=== PATIENT | male | born 1985 | race American Indian/Alaskan Native ===

== ENCOUNTER 2019-10-10 17:37 | Emergency (ER) | payer SELFPAY ==
[2019-10-10 19:50] VITALS: BP 140/103
--- NOTE | 2019-10-10 19:55 | Emergency Department Report ---
ED ENT HPI - General Chief complaint: Dental/Oral Stated complaint: LFT SIDE TOOTHACHE Time Seen by Provider: 10/10/19 19:40 Source: patient Mode of arrival: Ambulatory Limitations: No Limitations - History of Present Illness Initial comments: pt is 33 y/o male with c/o tooth pain. pt started yesterday. pain at 10/10. worse with movement and eating. better with rest. MD complaint: tooth pain -: Sudden, days(s) Location: tooth # Severity: severe Severity scale (0 -10): 10 Quality: stabbing Consistency: constant Improves with: rest Worsens with: eating, movement Context- Dental: history of dental caries Associated Symptoms: gum swelling, toothache. denies: fever, cough, pain with swallowing, sore throat, tinnitus, hearing loss, discharge from ear, rhinorrhea - Related Data Previous Rx's Medication Instructions Recorded Last Taken Type Acetaminophen/Codeine [Tylenol 1 tab PO Q4H PRN #10 tab 10/10/19 Unknown Rx /Codeine # 3 tab] Amoxicillin/Potassium Clav 1 each PO BID 10 Days #20 tablet 10/10/19 Unknown Rx [Augmentin 875-125 Tablet] Allergies Allergy/AdvReac Type Severity Reaction Status Date / Time No Known Allergies Allergy Unverified 10/10/19 17:38 ED Dental HPI - General Chief complaint: Dental/Oral Stated complaint: LFT SIDE TOOTHACHE Time Seen by Provider: 10/10/19 19:50 Source: patient Mode of arrival: Ambulatory Limitations: No Limitations - Related Data Previous Rx's Medication Instructions Recorded Last Taken Type Acetaminophen/Codeine [Tylenol 1 tab PO Q4H PRN #10 tab 10/10/19 Unknown Rx /Codeine # 3 tab] Amoxicillin/Potassium Clav 1 each PO BID 10 Days #20 tablet 10/10/19 Unknown Rx [Augmentin 875-125 Tablet] Allergies Allergy/AdvReac Type Severity Reaction Status Date / Time No Known Allergies Allergy Unverified 10/10/19 17:38 ED Review of Systems ROS: Stated complaint: LFT SIDE TOOTHACHE Other details as noted in HPI Constitutional: denies: chills, fever Eyes: denies: eye pain, eye discharge, vision change ENT: denies: ear pain, throat pain Respiratory: denies: cough, shortness of breath, wheezing Cardiovascular: denies: chest pain, palpitations Endocrine: no symptoms reported Gastrointestinal: denies: abdominal pain, nausea, diarrhea Genitourinary: denies: urgency, dysuria Musculoskeletal: denies: back pain, joint swelling, arthralgia Skin: denies: rash, lesions Neurological: denies: headache, weakness, paresthesias Psychiatric: denies: anxiety, depression Hematological/Lymphatic: denies: easy bleeding, easy bruising ED Past Medical Hx - Past Medical History Previous Medical History?: No - Surgical History Past Surgical History?: No - Family History Family history: no significant - Social History Smoking Status: Never Smoker Substance Use Type: None - Medications Home Medications: Home Medications Medication Instructions Recorded Confirmed Last Taken Type Acetaminophen/Codeine [Tylenol 1 tab PO Q4H PRN #10 tab 10/10/19 Unknown Rx /Codeine # 3 tab] Amoxicillin/Potassium Clav 1 each PO BID 10 Days #20 tablet 10/10/19 Unknown Rx [Augmentin 875-125 Tablet] ED Physical Exam - General Limitations: No Limitations General appearance: alert, in no apparent distress - Head Head exam: Present: atraumatic, normocephalic - Eye Eye exam: Present: normal appearance - ENT ENT exam: Present: mucous membranes moist, other (no oral abscess. pos gingival swelling and redness. ) - Neck Neck exam: Present: normal inspection - Respiratory Respiratory exam: Present: normal lung sounds bilaterally. Absent: respiratory distress - Cardiovascular Cardiovascular Exam: Present: regular rate, normal rhythm. Absent: systolic murmur, diastolic murmur, rubs, gallop - GI/Abdominal GI/Abdominal exam: Present: soft, normal bowel sounds - Rectal Rectal exam: Present: deferred - Extremities Exam Extremities exam: Present: normal inspection - Back Exam Back exam: Present: normal inspection - Neurological Exam Neurological exam: Present: alert, oriented X3 - Psychiatric Psychiatric exam: Present: normal affect, normal mood - Skin Skin exam: Present: warm, dry, intact, normal color. Absent: rash ED Course Vital Signs 10/10/19 18:41 Temperature 98.9 F Pulse Rate 57 L Respiratory 20 Rate Blood Pressure 140/103 O2 Sat by Pulse 99 Oximetry - Reevaluation(s) Reevaluation #1: I discussed all results with patient. I discussed plan of care outpatient. Patient will be discharged all. Patient is stable for discharge. Patient given discharge instructions. Patient voiced understanding of discharge instructions. 10/10/19 19:54 ED Medical Decision Making - Medical Decision Making pt is 33 y/o male presents for tooth pain. pt findings c/w tooth infection/pain and gingival infection. pt given abx and pain meds. - Differential Diagnosis dental infection. dental pain Critical care attestation.: If time is entered above; I have spent that time in minutes in the direct care of this critically ill patient, excluding procedure time. ED Disposition Clinical Impression: Dental infection, Gingivitis Disposition: TO HOME OR SELFCARE Is pt being admited?: No Does the pt Need Aspirin: No Condition: Stable Instructions: Dental Caries (ED), Toothache (ED) Additional Instructions: Patient to follow up with primary care in 2-3 days. pt to see dentist anamaria. Patient to return to ER if condition worsens or new symptoms arise or symptoms change. Patient to increase water. Patient to rest. Patient to take Tylenol or ibuprofen when necessary for pain/fever. Prescriptions: Amoxicillin/Potassium Clav [Augmentin 875-125 Tablet] 1 each PO BID 10 Days #20 tablet Acetaminophen/Codeine [Tylenol /Codeine # 3 tab] 1 tab PO Q4H PRN #10 tab PRN Reason: Pain , Severe (7-10) Time of Disposition: 20:00
== END 2019-10-10 20:50 | disposition home or self-care (01) ==
LOC: ED 17:37
DX: K04.7 Periapical abscess without sinus (principal); K05.10 Chronic gingivitis, plaque induced; Z79.899 Other long term (current) drug therapy

== ENCOUNTER 2020-05-11 09:25 | Emergency (ER) | payer SELFPAY ==
[2020-05-11 09:50] VITALS: BP 138/87
--- NOTE | 2020-05-11 11:51 | Emergency Department Report ---
Chief Complaint: Urogenital-Male Stated Complaint: STD CHECK Time Seen by Provider: 05/11/20 11:47 - HPI History of Present Illness: This 34-year-old male who presents the ED for STD screening and testing with symptoms of dysuria. Patient denies any other symptoms, penile or testicular pain or swelling, fever, chills, abdominal pain or any olther issues - ROS Review of Systems: As noted in HPI - Exam Vital Signs: Vital Signs 05/11/20 09:49 Temperature 98.0 F Pulse Rate 60 Respiratory 17 Rate Blood Pressure 138/87 O2 Sat by Pulse 96 Oximetry MSE screening note: Focused history and physical exam performed. Due to findings the following was ordered: ED Medical Decision Making - Medical Decision Making 34-year-old male presents for STD screening and treatment. Patient still insists symptom is dysuria. I discussed with patient is not a medical emergency and referred him out to Dr. pollard here. Referrals given and instructions given to go to Dr. Johnson's office. Patient is given instructions to follow-up with Dr. Schneider for screening and treatment. Also discussed with patient follow-up with the health department for further STD screening. ED Disposition for MSE Clinical Impression: Screening for STD (sexually transmitted disease) Disposition: MED SCREENING EXAM-LEFT Is pt being admited?: No Does the pt Need Aspirin: No Condition: Stable Instructions: Sexually Transmitted Diseases (ED) Additional Instructions: Follow-up with Dr. pollard here for STD testing and treatment Referrals: [facility] [place] [Outside] - 3-5 Days [facility] [Outside] - 3-5 Days [facility] [Outside] - 3-5 Days Forms: Work/School Release Form(ED) Time of Disposition: 11:48
== END 2020-05-11 11:56 | disposition left against medical advice (07) ==
LOC: ED 09:25
DX: Z53.21 Procedure and treatment not carried out due to patient leaving prior to being seen by health care provider (principal)